=== PATIENT | male | born 1945 | race Caucasian/White ===

== ENCOUNTER 2023-04-18 21:01 | Emergency (ER) | payer MEDICARE, OTHER, SELFPAY ==
[2023-04-18 21:03] VITALS: BP 142/82
[2023-04-18 21:29] LABS: % Basophils 0.3 % (0-2); % Eosinophils 0.1 % (0-6); % Immature Granulocytes 0.4 % (0-0.5); % Lymphocytes 8.4 % (20.5-51.1); % Monocytes 6.1 % (1.7-9.3); % Neutrophils 84.7 % (42.2-75.2); Absolute Immature Granulocytes 0.1 10^3/uL (0-0.05); Absolute Lymphocytes 1.3 10^3/uL (1.2-3.4); Absolute Neutrophils 13.6 10^3/uL (1.4-6.5); Hematocrit 42.2 % (39.0-52.0); Hemoglobin 14.5 g/dL (13.0-18.0); Mean Corp Hgb Conc. 34.4 g/dL (33.0-37.0); Mean Corpuscular Hgb 27.7 pg (27.0-31.0); Mean Corpuscular Volume 80.7 fL (80.0-94.0); Mean Platelet Volume 10.6 fL (7.4-10.4); Nucleated Red Blood Cells % 0 % (-); Platelet Count 229 10^3/uL (130-400); Red Blood Cell Count 5.23 10^6/uL (4.70-6.10); Red Cell Dist. Width 13.6 % (11.5-14.5)
[2023-04-18 21:55] LABS: Troponin I < 0.012 ng/ml
[2023-04-18 22:01] LABS: ALT (SGPT) 29 U/L (0-50); AST (SGOT) 32 U/L (17-59); Albumin 3.4 g/dl (3.5-5.0); Alkaline Phosphatase 61 U/L (38-126); Blood Urea Nitrogen 21 mg/dl (9-20); Calcium 9.1 mg/dl (8.4-10.2); Carbon Dioxide 19 mmol/L (22-30); Chloride 105 mmol/L (98-107); Glucose 110 mg/dl (70-99); Potassium 3.8 mmol/L (3.5-5.1); Sodium 137 mmol/L (135-145); Total Bilirubin 1.4 mg/dl (0.2-1.3); Total Protein 6.3 g/dl (6.3-8.2)
[2023-04-18 22:11] LABS: eGFR 56.58
[2023-04-18 22:38] VITALS: BP 118/88
[2023-04-18 23:00] VITALS: BP 106/64
[2023-04-18 23:05] VITALS: BMI 37.1
[2023-04-18 23:21] LABS: COVID-19 Antigen Negative (Negative)
[2023-04-18] MEDS: NSS 1000 IV (23:35)
[2023-04-18] MEDS: TYLENOL 1000 MG PO (23:35)
--- NOTE | 2023-04-18 23:36 | ED.GENMED ---
Addendum entered and electronically signed by Olvin Guerrero PA-C 04/22/23 07:39:
Pansensitive E coli, on appropriate abx
Addendum entered and electronically signed by Park Sanchez PA-C 04/21/23 07:15:
urine gram neg rods; given doxy; prelim, await sensitivities
Original Note:
History of Present Illness
General
Chief Complaint: Cardiac Symptoms
Source: patient, spouse (Telephone conversation with patient's ) and family (Son who is at bedside, helping to interpret)
Exam Limitations: none
Time Seen by Provider: 04/18/23 22:58
Nursing documentation reviewed up to this point in time: agreed with
Travel History
Have you had any contact with someone who has COVID-19?: No
Do you have any symptoms of coronavirus? Fever > 100 degrees, chills, cough, shortness of breath, sore throat, loss of taste or smell, muscle aches, or headache?: No
History of Present Illness
History of Present Illness:
This is a 77-year-old primarily [place]ic-speaking gentleman who resides at home with family. He has history of atrial fibrillation maintained on Eliquis, history of hypertension, hyperlipidemia, CAD, benign familial tremor and history of BPH with
UTIs generally 2-3 times per year with the last UTI approximately 4 months ago. He does have history of incomplete bladder emptying but has never required Bojorquez catheter insertion.
He complains of overall not feeling well since this morning, generalized aches, palpitations, dizziness, nausea without vomiting, poor oral intake today. He has not had a cough nor nasal congestion, no sore throat. He does admit to mild
intermittent generalized headache, intermittent dizziness but he has had no fall, no loss of consciousness, no vision changes. He denies abdominal pain, no diarrhea nor constipation. He has had mildly decreased urine output throughout the day
today but he denies dysuria no urgency no hematuria. He denies flank nor back pain. He does admit to mild shortness of breath more so with activity and worse tonight with worsening symptoms this evening.
He was noted to have elevated blood pressure this evening and was given a dose of losartan at 5 PM along with additional 25 mg of metoprolol. The losartan is his 's medication; the patient is maintained on metoprolol succinate 50 mg once a day
which she takes in the morning.
Upon arrival to the ED patient is noted to be febrile with oral temperature 100.1 �F. He and his family were unaware that he was running a fever.
No close contacts with similar symptoms. Patient has had no recent travel.
His daily medications include: Metoprolol, Eliquis, Topamax, magnesium, Praluent.
Past History
Past History
ED Past Medical History: Arrthythmia (Atrial fibrillation), CAD, HTN, Hypercholesterolemia and Other (BPH with history of UTIs); Negative Asthma, CHF, COPD, NIDDM or Renal failure
ED Past Surgical History: Cardiac (PTCA with stent)
Social History
Tobacco: Non-smoker
Alcohol: None
Drug: None
Personal:
Living: with family
Family History
Family History: Other (Noncontributory)
Phy Exam
Physical Exam
Physical Exam:
GENERAL: 77-year-old gentleman appears his stated age, awake and alert, pleasant, appears in no acute distress. Understands [place] well. His son is accompanying and assisting with interpreting. Further information provided via telephone call
with his . Low-grade fever noted 100.1 �F. Initial blood pressure 142/82, mild tachycardia. BP mildly hypotensive during my initial evaluation 106/70.
EYE: pupils equal and reactive. anicteric
NECK: Supple, nontender, no meningismus, no significant adenopathy.
ENT: posterior pharynx is clear, oral mucosa is mildly dry. TM clear b/l, nares patent.
CARDIAC: Irregularly irregular, mildly tachycardic, no murmur.
LUNGS: Clear breath sounds bilaterally, no acute respiratory distress, no wheezes/rales/rhonchi
ABDOMEN: Rotund, soft, nondistended, without focal tenderness, no r/g, no cvat. normoactive BS. No palpable masses. Bladder is not palpably distended.
NEUROLOGICAL: Alert and oriented x3, no focal neuro deficits.
SKIN: Mildly hot to touch and dry, normal color, skin intact. No rash.
MUSCULOSKELETAL: No clubbing or cyanosis. Trace pretibial edema bilateral lower extremities. Peripheral pulses are full and equal b/l. No palpable tenderness.
PSYCH: Normal and appropriate interaction.
Course
Orders/Labs/Results
Orders:
Orders
04/18/23 21:08
Electrocardiogram (*1) Urgent
Reason for Study: Palpitations
04/18/23 21:09
EKG- Treatment ONCE
04/18/23 21:20
CMP [Comprehensive Metabolic Panel] Urgent
Complete Blood Count/With Diff Urgent
Troponin I Urgent
04/18/23 23:00
COVID-19 Antigen Urgent
Source: Nasal Swab
Influenza A+B Rapid Molecular Urgent
JEREMIAS Source: Nasal Swab
Specimen Description:
04/18/23 23:14
0.9% Sodium Chloride 1000 ml [Nss] 1,000 ml IV BOLUS
Acetaminophen [Tylenol] 1,000 mg PO NOW STA
04/18/23 23:16
CR Chest - 2 Views Urgent
Comment:
Reason For Exam: fever, SOB
04/18/23 23:20
Lactic Acid Urgent
Blood Culture Q30M
JEREMIAS Source: Blood/Venous
Specimen Description:
Blood Culture Q30M
JEREMIAS Source: Blood/Venous
Specimen Description:
04/18/23 23:36
Urinalysis Reflex To Culture Urgent
Date Specimen was Collected: 04/18/23
Time Specimen was Collected: 23:25
Urine Microscopic Reflex Cult Urgent
Urine Culture Urgent
JEREMIAS Source: U
Specimen Description:
Date Specimen was Collected: 01/29/24
Time Specimen was Collected: 23:25
04/19/23 01:00
CefTRIAXone [Rocephin] 2,000 mg IV NOW STA
04/19/23 01:04
Sterile Water [Sterile Water For Injection] 10 ml .ROUTE .K-MED ONE
Abnormal Lab Results
04/18/23 04/18/23
21:20 23:36
WBC 16.0 H 10^3/uL
(4.8-10.8)
MPV 10.6 H fL
(7.4-10.4)
Abs Immat Gran (auto) 0.1 H 10^3/uL
(0-0.05)
Absolute Neuts (auto) 13.6 H 10^3/uL
(1.4-6.5)
Absolute Monos (auto) 1.0 H 10^3/uL
(0.1-0.6)
Neutrophils % 84.7 H %
(42.2-75.2)
Lymphocytes % 8.4 L %
(20.5-51.1)
Carbon Dioxide 19 L mmol/L
(22-30)
BUN 21 H mg/dl
(9-20)
Glucose 110 H mg/dl
(70-99)
Total Bilirubin 1.4 H mg/dl
(0.2-1.3)
Albumin 3.4 L g/dl
(3.5-5.0)
Ur Occult Blood Reflex Trace A
(Negative)
Urine Nitrite (Reflex) Positive A
(Negative)
Leukocyte Esterase Rfl 1+ A
(Negative)
Urine WBC (Reflex) 11-15 A /HPF
(0-5)
Urine Bacteria (Reflex) Many A
(Negative)
04/18/23 21:20
04/18/23 21:20
Vital Signs
Initial and Last Documented VS:
Initial Vital Signs
Temp Pulse Resp BP Pulse Ox
100 F 102 24 142/82 96
04/18/23 21:03 04/18/23 21:03 04/18/23 21:03 04/18/23 21:03 04/18/23 21:03
Last Documented Vital Signs
Temp Pulse Resp BP Pulse Ox
100.1 F 102 24 142/82 96
04/18/23 22:41 04/18/23 21:03 04/18/23 21:03 04/18/23 21:03 04/18/23 21:03
MDM/Problems Addressed
Differential Diagnosis Includes:
Patient presents with multiple nonspecific complaints including tachycardia, generalized aches, nausea, fatigue, headache, shortness of breath and is noted to be febrile.
I suspect all of his symptoms are acute febrile illness in nature.
Clinically appears dry. He does admit to poor oral intake today and has had intermittent nausea without vomiting.
Although reports intermittent shortness of breath, respirations are easy and nonlabored on exam, normal pulse ox and lungs are clear to auscultation. He has not had a cough. No prior history of CHF.
Chronically maintained on Eliquis, thus PE is doubtful.
COVID 19 and rapid influenza testing are pending but I suspect will be negative. Patient has had no URI symptoms, no cough.
EKG shows atrial fibrillation with rapid ventricular response at 108. Right bundle branch block. No old EKGs to compare. It is reassuring that patient has had no chest pain. ACS is unlikely.
Labs thus far reveal elevated white blood cell count of 16 with left shift.
Chemistries revealed top normal creatinine of 1.3, mild metabolic acidosis with CO2 of 19. T. bili minimally elevated at 1.4 but all other LFTs within normal limits. Patient has had no abdominal pain, abdomen is soft and nontender.
Prior history of UTIs and with acute febrile illness there is significant concern for recurrent UTI.
Along with fever, somewhat soft blood pressure there is concern for sepsis thus will check lactic acid, blood cultures.
Will give Tylenol for fever, initiate IV fluids.
Will check chest x-ray for completeness sake, concern for potential occult pneumonia.
Chronic conditions affecting care: HTN, CAD and Arrhythmia
*Radiology
Radiology exam reviewed: preliminary read by ED provider (Chest x-ray shows poor inspiratory effort otherwise unremarkable, clear lung espinosa. No old films to compare.)
*Pulse Oximetry
Patient hypoxic: no
*EKG
Interpreted by ED Provider?: Yes
Interpretation: abnormal
Comparison EKG: no comparison EKG present
Rate: tachycardiac
Rhythm: a-fib
[place]: left axis deviation
Interval: normal QT interval
QRS Pattern: right bundle branch block
Ischemia: T-wave inversion (Flipped T wave in aVL, flattened T wave in lead I.)
*[employer] Interpretation
Rate: tachycardiac
Interpretation: abnormal
Rhythm: a-fib
*Critical Care Note
Total Time (30-74mins, 75-104mins- exclusive of procedures): Not Applicable
Update Note
Update Note:
04/19/2023 0107 AM
Patient feeling markedly improved after IV fluids and Tylenol.
He is eager to be discharged to home.
Monitor continues to show atrial fibrillation but RVR has improved with heart rate now in the 80s. Mildly soft blood pressure has improved to 110 systolic.
Lactic acid is normal 0.9.
Urinalysis consistent with UTI, nitrite positive, many bacteria, 11-15 WBCs. Urine culture is pending. Blood cultures are pending.
He continues to deny back pain/flank pain. Nothing to suggest upper tract infection.
Will give an IV dose of Rocephin but at this point no indication for acute hospitalization. He is tolerating oral fluids and overall feeling well.
Will discharge to home with prescription for 1 week course of doxycycline.
Return precautions discussed.
ED Attending Note
-
Portions of this chart may have been created with voice recognition software.� Occasional wrong word or��sound alike� substitutions may have occurred due to the inherent limitations of voice recognition software.
Discharge Plan
Departure
Patient Disposition: Home (Routine Discharge)
Date of Disposition: 04/19/23
Time of Disposition: 01:09
Patient with high blood pressure during this ER visit?: No
Condition: Good
Discharge Problem:
Urinary tract infection, Acute febrile illness
Instructions: Fever, Adult (DC), Urinary Tract Infection - Men
Prescriptions:
New
doxycycline monohydrate 100 mg capsule
100 mg PO BID Qty: 20 1RF
No Action
rosuvastatin 40 mg Tablet
40 mg PO HS
Eliquis 5 mg Tablet
5 mg PO BID
magnesium 500 mg Tablet
15 mg PO DAILY
metoprolol succinate 50 mg Tablet Extended Release 24 Hr
50 mg PO DAILY
topiramate 25 mg Tablet
25 mg PO BID
Praluent Pen 75 mg/mL Pen Injector
75 mg SC Q14D
Referrals:
Rico Vigil MD [Family Provider] - Call in 1-3 days for appt
Interventions
Interventions:
*Risk Screen - Suicide Last Done: 04/18/23 21:03
*General Assessment Last Done: 04/18/23 23:04
*Neglect/Abuse Screening Last Done: 04/18/23 21:03
ED- Fall Risk Assessment Last Done: 04/18/23 23:05
*ED COVID-19 Vaccine History Last Done: 04/18/23 23:04
ED- Pulmonary Assessment Last Done: 04/18/23 23:05
ED- Cardiac Assessment Last Done: 04/18/23 23:05
[2023-04-18 23:47] LABS: Urine Albumin Negative (Neg - Trace); Urine Bilirubin Negative (Negative); Urine Character Clear (Clear); Urine Color Yellow; Urine Glucose Negative (Negative); Urine Ketone Negative (Negative); Urine Leukocyte 1+ (Negative); Urine Nitrite Positive (Negative); Urine Occult Blood Trace (Negative); Urine Urobilinogen Negative (Neg - 1+)
[2023-04-18 23:59] LABS: Urine Red Blood Cell 0-2 /HPF (0-2); Urine Squamous Cell 0-2 /LPF (Few)
[2023-04-19] LABS: Urine Bacteria Many (Negative)
[2023-04-19 00:04] LABS: Lactic Acid 0.9 mmol/L (0.7-2.0)
[2023-04-19 01:03] VITALS: BP 110/59
[2023-04-19] MEDS: ROCEPHIN 2000 MG IV (01:06)
== END 2023-04-19 01:23 | disposition home or self-care (01) ==
LOC: EMR 21:01
PROVIDERS: Emergency Medicine; EMERGENCY PHYSICIAN Emergency Medicine; FAMILY PHYSICIAN Internal Medicine
DX: N39.0 Urinary tract infection, site not specified (principal); R50.9 Fever, unspecified; I25.10 Atherosclerotic heart disease of native coronary artery without angina pectoris; I11.0 Hypertensive heart disease with heart failure; I50.9 Heart failure, unspecified; E78.00 Pure hypercholesterolemia, unspecified; E11.9 Type 2 diabetes mellitus without complications; I48.91 Unspecified atrial fibrillation; J44.9 Chronic obstructive pulmonary disease, unspecified; N40.0 Benign prostatic hyperplasia without lower urinary tract symptoms; Z79.01 Long term (current) use of anticoagulants; Z79.899 Other long term (current) drug therapy; Z87.440 Personal history of urinary (tract) infections; Z95.5 Presence of coronary angioplasty implant and graft
CPT/HCPCS: 99283; 71046; 80053; 81003; 81015; 83605; 84484; 85025; 87040; 87077; 87086; 87186; 87502; 87811; 93005